=== PATIENT | male | born 1950 | race Two or more races ===

== ENCOUNTER 2021-06-04 19:33 | Inpatient (IN) | payer MEDICARE, OTHER ==
[~2021-06-04] VITALS: Ht 172.7 cm; Wt 74.4 kg
--- NOTE | 2021-06-04 19:51 | NUR ---
Patient brought in by ambulance from [facility] in [place]. Pt is alert, non redirectable, pulls of his gown and monitor. Pt alert and oriented x 1. Restless. No acute distress. Awaiting MD andrew.
[2021-06-04] MEDS ORDERED: LACT10PA5 PO (20:24)
[2021-06-04] MEDS ORDERED: ACET-2154 PO (20:24)
[2021-06-04 20:25] LABS: BILIRUBIN,DIRECT 1.6 mg/dL (0.0-0.2); BILIRUBIN,TOTAL 3.6 mg/dL (0.2-1.0); MAGNESIUM 1.7 mg/dL (1.8-2.4)
[2021-06-04 20:30] LABS: HEMATOCRIT 31.3 % (36.7-47.1); MEAN CORPUSCULAR HEMOGLOBIN 36.4 uug (23.8-33.4); MEAN CORPUSCULAR VOLUME 107.2 fL (73.0-96.2)
[2021-06-04 20:34] LABS: PLATELET COUNT (AUTO) 33 K/uL (152-348)
[2021-06-04] MEDS ORDERED: LACTULOSE 20 G/30 ML LIQUID UDC PO ONE (21:00)
[2021-06-04 21:01] LABS: EOSINOPHILS % (MANUAL) 2 % (0-8); LYMPHOCYTES % (MANUAL) 11 % (20-40); MONOCYTES % (MANUAL) 8 % (2-10); NEUTROPHILS % (MANUAL) 79 % (42-75)
--- NOTE | 2021-06-04 21:38 | NUR ---
20g IV placed to Lt hand.
[2021-06-04] MEDS ORDERED: LACTULOSE 20 G/30 ML LIQUID UDC ONE (21:39)
[2021-06-04] MEDS: MAGNESIUM SULFATE/D5W 100 ML IV SCH ×3 (21:40→22:40)
[2021-06-04] MEDS ORDERED: MAGNESIUM SULFATE/D5W 100 ML ONE ×3 (21:40→22:44)
--- NOTE | 2021-06-04 22:00 | NUR ---
Per Dr. Rahman to run magneskavya wide open
--- NOTE | 2021-06-04 22:10 | NUR ---
2nd back of magnesium 1mg started.
--- NOTE | 2021-06-04 22:40 | NUR ---
2nd bag magnesium ended, 3rd bag started.
--- NOTE | 2021-06-04 23:08 | NUR ---
Report given to Nurse Paredes
--- NOTE | 2021-06-04 23:10 | NUR ---
3rd bag of magnesium ended.
--- NOTE | 2021-06-04 23:15 | NUR ---
IV dc'd noted with tip intact.
--- NOTE | 2021-06-04 23:34 | NUR ---
Patient taken to MHU via gurney with Caron BEDOYA assisting. Further report given to nurse Reggie. No incident noted during transfer.
--- NOTE | 2021-06-04 23:35 | NUR ---
Patient admitted to MHU, oriented to the environment, explained rules and policy. Patient on a 5150 hold for GD. Patient is under the care of Dr. Desai. Advisement was given to the patient. During evaluation patient appears dishevel, disorganized, confused, poor judgement, poor insight, A&O x 1, unable to follow command, and unsteady gait. No sign or symptom of respiratory distress, breathing even, unlabored. No indication of pain or discomfort. Vital signs within normal levels. Skin assessment and lice check was done. No significant findings were found, skin intact. No lice found. Patient has no belongings. Will continue to monitor patient for safety.
[2021-06-04] MEDS ORDERED: BLOOD SUGAR DIAGNOSTIC 1 EACH STRIP VI ONE (23:45)
[2021-06-04] MEDS ORDERED: MAGNESIUM HYDROXIDE 30 ML LIQUID UDC PO PRN (23:45)
[2021-06-04] MEDS ORDERED: MAG HYDROX/AL HYDROX/SIMETH 30 ML LIQUID UDC PO PRN (23:45)
[2021-06-05 07:20] LABS: CREATININE 0.8 mg/dL (0.6-1.3); POTASSIUM 3.4 mmol/L (3.5-5.1)
[2021-06-05 07:30] VITALS: BP 135/71
--- NOTE | 2021-06-05 08:04 | NUR ---
FIREARMS REPORT: [employer] completed and submitted a DOJ firearms report for 5150 grave disability certification. A copy of report has been placed in patient chart.
[2021-06-05] MEDS ORDERED: ACETAMINOPHEN 325 MG TABLET PO PRN (09:15)
[2021-06-05] MEDS ORDERED: POTASSIUM CHLORIDE 20 MEQ TAB.PRT.SR PO ONE ×2 (09:15→17:00)
[2021-06-05] MEDS ORDERED: LACTULOSE 20 G/30 ML LIQUID UDC PO PRN (09:15)
[2021-06-05] MEDS ORDERED: Medication Not On Formulary EA (Lactulose 10 GM) PO PRN (09:15)
[2021-06-05] MEDS: LORAZEPAM 1 MG TABLET PO PRN ×3 (09:32→23:25)
--- NOTE | 2021-06-05 10:20 | NUR ---
CITLALLI Initial Discharge Plan: Patient lives at home with sister Tricia ([phone]) located at [address], [place] [address]; ([phone]). This SW contacted patient's sister Tricia ([phone]) who stated that she is unable to take care of pt and pt will need a SNF for the meantime. SW will work with the MD and family to coordinate proper discharge.
--- NOTE | 2021-06-05 10:20 | NUR ---
Social Work Note/Substance Abuse Intervention: Patient was provided with a brief substance abuse intervention and referred to [facility] ([phone]), [facility] ([phone]), and [facility] ([phone]).
--- NOTE | 2021-06-05 10:20 | NUR ---
SW Family Contact: This SW contacted patient's sister Tricia ([phone]) who stated that she is unable to take care of pt and pt will need a SNF for the meantime.
--- NOTE | 2021-06-05 13:56 | NUR ---
potassium not yet given. med fell off in pyxis waiting for reenter from pharmacy
[2021-06-05 16:00] VITALS: BP 125/63
[2021-06-05 20:00] VITALS: BP 136/57
[2021-06-05] MEDS: RIVASTIGMINE TARTRATE 1.5 MG CAPSULE PO SCH (20:32)
[2021-06-05] MEDS: risperiDONE 1 MG TABLET PO SCH (20:32)
[2021-06-05] MEDS ORDERED: risperiDONE 0.5 MG TABLET PO SCH (21:00)
[2021-06-06] MEDS: LORAZEPAM 1 MG TABLET PO PRN (06:41)
[2021-06-06 07:30] VITALS: BP 108/72
[2021-06-06] MEDS: RIVASTIGMINE TARTRATE 1.5 MG CAPSULE PO SCH ×2 (08:00→20:05)
[2021-06-06] MEDS: risperiDONE 1 MG TABLET PO SCH ×2 (08:00→20:05)
--- NOTE | 2021-06-06 09:42 | NUR ---
SW SNF Referral: CITLALLI faxed patient's referral packet for review to [facility] ( ).
[2021-06-06 16:00] VITALS: BP 128/61
--- NOTE | 2021-06-06 16:27 | NUR ---
Pt not NPO, spoke to Rn, Pt will be Npo tmrw
[2021-06-06] MEDS: TEMAZEPAM 7.5 MG CAPSULE PO PRN (20:06)
[2021-06-06 20:22] VITALS: BP 113/70
[2021-06-07] MEDS: LORAZEPAM 1 MG TABLET PO PRN ×2 (02:34→11:37)
--- NOTE | 2021-06-07 05:31 | NUR ---
Pharmacy note ; This patient received Ativan 1mg PO at 2130. This medication was scanned late at 02:34am. This curriculum writer thought it was scanned on time but when verifying the medications , curriculum writer discovered it was missed.
--- NOTE | 2021-06-07 05:41 | NUR ---
Received the patient in the Torrie chair last night. Mumbling and confused. This bid writer was however able to get simple answers. The patient verbalized being hungry and was give a sandwich and monitored closely for aspiration. Patient was assisted to the bathroom with 2 staff members. He was weak and his gait was unsteady. As the night wore on the patient became anxious and was banging on the table. PRN medications were provided and the patient was compliant. Total sleep hours were 5.00. Continuing to monitor this patient for safety, increasing confusion and behavior escalation. No acute distress at this time.
[2021-06-07 07:35] VITALS: BP 126/66
[2021-06-07] MEDS: risperiDONE 1 MG TABLET PO SCH ×2 (08:10→20:34)
[2021-06-07] MEDS: RIVASTIGMINE TARTRATE 1.5 MG CAPSULE PO SCH ×2 (08:11→20:34)
[2021-06-07] MEDS: ACETAMINOPHEN 325 MG TABLET PO PRN (11:38)
[2021-06-07 16:25] VITALS: BP 123/53
[2021-06-07 20:23] VITALS: BP 135/66
[2021-06-07] MEDS: TEMAZEPAM 7.5 MG CAPSULE PO PRN (20:36)
[2021-06-08] MEDS: LORAZEPAM 1 MG TABLET PO PRN ×2 (00:37→08:23)
[2021-06-08] MEDS: RIVASTIGMINE TARTRATE 1.5 MG CAPSULE PO SCH ×2 (08:23→23:09)
[2021-06-08] MEDS: risperiDONE 1 MG TABLET PO SCH ×2 (08:23→23:09)
[2021-06-08 09:31] LABS: BILIRUBIN,TOTAL 3.5 mg/dL (0.2-1.0); CREATININE 0.7 mg/dL (0.6-1.3); MAGNESIUM 2.1 mg/dL (1.8-2.4); POTASSIUM 3.9 mmol/L (3.5-5.1); TOTAL PROTEIN, SERUM 6.9 g/dL (6.4-8.2)
[2021-06-08 09:32] VITALS: BP 111/66
[2021-06-08 10:17] LABS: HEMATOCRIT 33.3 % (36.7-47.1); MEAN CORPUSCULAR HEMOGLOBIN 36.6 uug (23.8-33.4); MEAN CORPUSCULAR VOLUME 111.8 fL (73.0-96.2)
[2021-06-08 10:24] LABS: PLATELET COUNT (AUTO) 29 K/uL (152-348)
--- NOTE | 2021-06-08 10:35 | NUR ---
RECEIVED CALL FROM LAB REGARDING PT'S CRITICAL LAB RESULTS OF DECREASED PLATELET COUNT OF 29. INFORMED DR. SORIA WITH NO NEW ORDERS AT THIS TIME.
[2021-06-08 15:06] LABS: EOSINOPHILS % (MANUAL) 2 % (0-8); LYMPHOCYTES % (MANUAL) 20 % (20-40); MONOCYTES % (MANUAL) 10 % (2-10); NEUTROPHILS % (MANUAL) 68 % (42-75)
[2021-06-08 16:24] VITALS: BP 119/69
[2021-06-08 20:23] VITALS: BP 125/44
[2021-06-09] MEDS: RIVASTIGMINE TARTRATE 1.5 MG CAPSULE PO SCH ×2 (08:23→20:21)
[2021-06-09] MEDS: risperiDONE 1 MG TABLET PO SCH (08:23)
[2021-06-09] MEDS: ACETAMINOPHEN 325 MG TABLET PO PRN ×2 (08:31→17:02)
[2021-06-09] MEDS: LORAZEPAM 1 MG TABLET PO PRN ×3 (08:31→17:02)
[2021-06-09 09:43] VITALS: BP 112/56
--- NOTE | 2021-06-09 10:11 | NUR ---
Court Hearing: Patient's court hearing for 2010 was today and it was upheld for GD.
--- NOTE | 2021-06-09 15:06 | NUR ---
SW Family Contact: This SW contacted patients sister Tricia ([phone]) to notify that pt is accepted at [facility], however, she did not have a voicemail set up.
--- NOTE | 2021-06-09 15:06 | NUR ---
SNF Contact: This SW received a call from [employer] admin from [facility] who stated that pt is accepted.
--- NOTE | 2021-06-09 15:11 | NUR ---
SW Family Contact: This SW contacted patients sister Tricia ([phone]) and stated that pt is accepted at [facility] and she was agreeable with this.
--- NOTE | 2021-06-09 15:28 | NUR ---
SW Family Contact: This SW contacted patients sister Tricia ([phone]) and sister stated if this commercial loan underwriter can fax clinicals to [facility] ([phone]).
--- NOTE | 2021-06-09 15:29 | NUR ---
SNF Referral: This SW contacted [facility] and spoke with admissions Anny ([phone]) and faxed ([phone]) for placement option per sister request.
[2021-06-09 15:36] VITALS: BP 124/46
[2021-06-09 20:07] VITALS: BP 101/63
[2021-06-09] MEDS: HALOPERIDOL 2 MG TABLET PO SCH (20:21)
[2021-06-09] MEDS: TEMAZEPAM 7.5 MG CAPSULE PO PRN (21:33)
[2021-06-10 07:30] VITALS: BP 137/65
[2021-06-10] MEDS: HALOPERIDOL 2 MG TABLET PO SCH ×3 (08:28→16:28)
[2021-06-10] MEDS: RIVASTIGMINE TARTRATE 1.5 MG CAPSULE PO SCH ×2 (08:28→21:00)
--- NOTE | 2021-06-10 10:33 | NUR ---
SNF Contact: This SW contacted [facility] and spoke with surendra Anny ([phone]) who stated patient is accepted at the facility for placement.
--- NOTE | 2021-06-10 10:34 | NUR ---
SW Family Contact: This SW contacted patients sister Tricia ([phone]) and informed that patient is accepted at [facility] ([phone]).
[2021-06-10] MEDS: LORAZEPAM 1 MG TABLET PO PRN (12:24)
[2021-06-10 15:15] VITALS: BP 121/72
[2021-06-10 20:37] VITALS: BP 128/58
[2021-06-11] MEDS: LORAZEPAM 1 MG TABLET PO PRN (01:46)
--- NOTE | 2021-06-11 01:53 | NUR ---
GPS: Pt.is awake,restless and confused. Incontinence care was just rendered. Repositioned for comfort. Re-directed and reality re-orientation provided. Fall precautions observed. Ativan 1mg PO given. Will monitor effectiveness.
[2021-06-11 07:30] VITALS: BP 128/93
[2021-06-11] MEDS: HALOPERIDOL 2 MG TABLET PO SCH ×3 (09:27→18:01)
[2021-06-11] MEDS: RIVASTIGMINE TARTRATE 1.5 MG CAPSULE PO SCH ×2 (09:27→22:31)
--- NOTE | 2021-06-11 11:08 | NUR ---
CITLALLI Coordination of Care: CITLALLI spoke with digital content coordinator Anny ([phone]) and stated pt will be discharged on Sunday 06/17 and require clinicals to be faxed Wednesday.
[2021-06-11 16:41] VITALS: BP 138/70
[2021-06-11 20:08] VITALS: BP 122/56
[2021-06-12 07:30] VITALS: BP 140/71
[2021-06-12] MEDS: HALOPERIDOL 2 MG TABLET PO SCH ×3 (08:48→17:01)
[2021-06-12] MEDS: RIVASTIGMINE TARTRATE 1.5 MG CAPSULE PO SCH ×2 (08:48→20:47)
--- NOTE | 2021-06-12 14:24 | NUR ---
Gps/Site Leader- Appeared to be lrthargic, responding to simple command, max assist with P.T. transfers. Kept up in his mahesh-chair, asleep most of the time, arousable . safety emphasized. Unable to collect urine specimen at this time r/t incontinence
[2021-06-12 16:00] VITALS: BP 134/71
[2021-06-12] MEDS: LACTULOSE 20 G/30 ML LIQUID UDC PO SCH (17:01)
[2021-06-12 20:00] VITALS: BP 129/55
[2021-06-13] MEDS: LORAZEPAM 1 MG TABLET PO PRN (02:48)
--- NOTE | 2021-06-13 06:41 | NUR ---
GPS: Pt.slept for 8 last night. Up on mahesh-chair in front of nurses station for safety. Remains confused,disoriented. Re-directed prn. Will continue to monitor.
[2021-06-13 07:30] VITALS: BP 135/70
--- NOTE | 2021-06-13 08:27 | NUR ---
Gps/Mason Tender- Received up in his mahesh-chair, asleep , arousable, moans at times, mumbles, in no signs of any distress Patient tends to lean on his right side. assisted with proper positioning
[2021-06-13] MEDS: RIVASTIGMINE TARTRATE 1.5 MG CAPSULE PO SCH ×2 (09:22→20:23)
[2021-06-13] MEDS: HALOPERIDOL 2 MG TABLET PO SCH ×3 (09:22→16:56)
[2021-06-13] MEDS: LACTULOSE 20 G/30 ML LIQUID UDC PO SCH ×2 (09:22→16:55)
--- NOTE | 2021-06-13 15:45 | NUR ---
SW Family Contact: This SW contacted patients sister Tricia ([phone]) and stated pt will be discharged next week Wednesday. She is agreeable with this.
[2021-06-13 16:53] VITALS: BP_SYST 56
[2021-06-13 20:25] VITALS: BP 148/75
[2021-06-13] MEDS: TEMAZEPAM 7.5 MG CAPSULE PO PRN (20:56)
[2021-06-13] MEDS: Z GUARD REMEDY PASTE 57 GM TUBE TOP PRN (20:56)
--- NOTE | 2021-06-14 06:32 | NUR ---
GPS: Pt.slept 6 hrs last night. Remains confused,disoriented and disorganized. Incontinence care done frequently. Denied pain when asked. Able to reposition self prn. Will continue to monitor.
[2021-06-14 07:30] VITALS: BP 153/78
[2021-06-14] MEDS: RIVASTIGMINE TARTRATE 1.5 MG CAPSULE PO SCH ×2 (08:49→21:19)
[2021-06-14] MEDS: LACTULOSE 20 G/30 ML LIQUID UDC PO SCH ×2 (08:49→16:48)
[2021-06-14] MEDS: HALOPERIDOL 2 MG TABLET PO SCH ×3 (08:49→16:48)
--- NOTE | 2021-06-14 12:54 | NUR ---
Patient in bed, moans whenever I call his name. Turning and repositioning rendered. Kept skin clean and dry. All due meds given per MD order. All needs met in a timely manner.
[2021-06-14] MEDS: LORAZEPAM 1 MG TABLET PO PRN ×2 (13:08→19:57)
[2021-06-14 15:03] VITALS: BP 147/81
[2021-06-14 20:22] VITALS: BP 148/78
[2021-06-14] MEDS: Z GUARD REMEDY PASTE 57 GM TUBE TOP PRN (21:19)
--- NOTE | 2021-06-15 06:28 | NUR ---
Received Pi asleep in bed, arouses to touch. Pt is A+O x0, and barely responsive to his name due to severe cognitive decline. Pt is uncooperative and resistant to care. Pt requires maximum assist with all ADLs. Skin and oral care provided. Pt had 2 large BMs throughout the shift, Pt cleaned and changed, Z guard applied to groin and buttock area. Repositioned q 2 hours, bony prominences padded. Pt requires a minimum of 2 staff to perform ADLs due to aggression when care is rendered. Medication administered crushed in applesauce. VS stable, no evidence of pain.
[2021-06-15] MEDS: LACTULOSE 20 G/30 ML LIQUID UDC PO SCH ×2 (08:27→17:00)
[2021-06-15] MEDS: RIVASTIGMINE TARTRATE 1.5 MG CAPSULE PO SCH ×2 (08:27→20:45)
[2021-06-15] MEDS: HALOPERIDOL 2 MG TABLET PO SCH ×3 (08:27→17:05)
[2021-06-15 09:14] VITALS: BP 149/50
[2021-06-15 16:39] VITALS: BP 163/80
--- NOTE | 2021-06-15 18:14 | NUR ---
REMINDED DAVID Ashraf NP ABOUT PT'S CRITICAL PLATELET LEVEL OF 29 WITH NO NEW ORDERS GIVEN.
--- NOTE | 2021-06-15 18:25 | NUR ---
patient asleep most of shift arouse when touch , still had 2 large BM, keep skin dry and clean at all time, total care to all ADLS.
[2021-06-15 20:05] VITALS: BP 136/77
[2021-06-15] MEDS: TEMAZEPAM 7.5 MG CAPSULE PO PRN (23:28)
[2021-06-16 07:50] VITALS: BP 165/74
[2021-06-16] MEDS: RIVASTIGMINE TARTRATE 1.5 MG CAPSULE PO SCH ×2 (08:30→20:15)
[2021-06-16] MEDS: LACTULOSE 20 G/30 ML LIQUID UDC PO SCH ×2 (08:30→16:50)
[2021-06-16] MEDS: HALOPERIDOL 2 MG TABLET PO SCH ×3 (08:30→16:50)
[2021-06-16 09:26] LABS: THYROID STIMULATING HORMONE 1.883 mIU/mL (0.358-3.740)
[2021-06-16 09:41] LABS: BILIRUBIN,DIRECT 1.2 mg/dL (0.0-0.2); BILIRUBIN,TOTAL 4.5 mg/dL (0.2-1.0); CREATININE 0.7 mg/dL (0.6-1.3); POTASSIUM 3.9 mmol/L (3.5-5.1); TOTAL PROTEIN, SERUM 6.6 g/dL (6.4-8.2)
[2021-06-16 10:02] LABS: *RHEUMATOID FACTOR SCREEN POSITIVE (NEGATIVE)
[2021-06-16] MEDS ORDERED: FOLIC ACID 1 MG TABLET PO SCH (10:45)
[2021-06-16] MEDS ORDERED: IV D5W 1000ML 1,000 ML IV ONE (12:00)
[2021-06-16 12:15] LABS: HEMATOCRIT 35.4 % (36.7-47.1); MEAN CORPUSCULAR HEMOGLOBIN 38.1 uug (23.8-33.4); MEAN CORPUSCULAR VOLUME 115.7 fL (73.0-96.2)
[2021-06-16 12:34] LABS: PLATELET COUNT (AUTO) 19 K/uL (152-348)
--- NOTE | 2021-06-16 12:49 | NUR ---
Received critical lab from Ricky Ochoa [employer] made aware, spoke with Patient's sister Tricia Hayward if family wants to do full treatment and transfusion., due to his code status is DNR. patient' s family refused to be transfer to med/surg floor.
--- NOTE | 2021-06-16 16:10 | NUR ---
Transfer Note: Patient will be transferred to medical floor for blood transfusion. Dr. Tan will continue the hold. Patient is DNR. Patient is accepted at [facility], [address] [address] ([phone]). Patients sister Tricia ([phone]) is involved in patients care. CITLALLI spoke with continuous improvement coordinator Anny ([phone]) who confirmed patient is accepted. Or, speak to [facility] who is covering for Anny until 06/18 and will be back 06/19.
[2021-06-16 16:51] VITALS: BP 133/64
--- NOTE | 2021-06-16 18:14 | NUR ---
patient will be transfer to med/surg floor with DX; Thrombocytopenia, family notified spoke wth sister .
[2021-06-16 19:00] LABS: LYMPHOCYTES % (MANUAL) 25 % (20-40); MONOCYTES % (MANUAL) 10 % (2-10); NEUTROPHILS % (MANUAL) 60 % (42-75)
[2021-06-16 19:01] LABS: EOSINOPHILS % (MANUAL) 5 % (0-8)
[2021-06-16 20:29] VITALS: BP 162/68
[2021-06-16] MEDS ORDERED: HALOPERIDOL 1 MG TABLET PO SCH (21:00)
--- NOTE | 2021-06-16 23:08 | NUR ---
DISCHARGE NOTE: STAFF GAVE THE REPORT TO THE FLOOR NURSE. PT WAS TRANSFERRED TO MEDICAL FLOOR VIA RUBEN-CHAIR ACCOMPANIED BY 1:1 SITTER AND TOBACCO BUYERCERTIFIED SKI PATROLLER.STAFF GAVE THE REPORT TO THE FLOOR NURSE .A/O X1 ,ANXIOUS,RESTLESS AND INC.WITH BANDAR-ANAL CARE PROVIDED.
[2021-06-17 10:06] LABS: *IMMUNOGLOBULIN G, SERUM 2119 mg/dL (603-1613); IMMUNOGLOBULIN A, SERUM 1030 mg/dL (61-437); IMMUNOGLOBULIN M, SERUM 120 mg/dL (20-172)
[2021-06-18 06:06] LABS: A/G RATIO 0.7 (0.7-1.7); ALBUMIN 2.7 g/dL (2.9-4.4); ALPHA-1-GLOBULIN 0.1 g/dL (0.0-0.4); ALPHA-2-GLOBULIN 0.3 g/dL (0.4-1.0); BETA GLOBULIN 1.1 g/dL (0.7-1.3); GAMMA GLOBULIN 2.3 g/dL (0.4-1.8); GLOBULIN, TOTAL 3.8 g/dL (2.2-3.9); M-SPIKE Not Observed g/dL (Not Observed)
[2021-06-18 14:54] LABS: *ANTI-SCLERODERMA-70 AB <0.2; *SJOGREN'S ANTI-SS-A <0.2; *SMITH ANTIBODIES <0.2
[2021-06-18 14:55] LABS: *SJOGREN'S ANTI-SS-B 0.4; ANTI-DNA(DS) AB, QN <1
== END 2021-06-16 22:09 | disposition short-term general hospital (02) | DRG 885 ==
LOC: ER 19:36 → GPS 23:16
PROVIDERS: ADMIT Psychiatry & Neurology Psychiatry; ATTEND Family Medicine
DX: F39 Unspecified mood [affective] disorder (principal); B19.20 Unspecified viral hepatitis C without hepatic coma; D61.818 Other pancytopenia; E44.0 Moderate protein-calorie malnutrition; F23 Brief psychotic disorder; F10.20 Alcohol dependence, uncomplicated; F03.90 Unspecified dementia, unspecified severity, without behavioral disturbance, psychotic disturbance, mood disturbance, and anxiety; K72.10 Chronic hepatic failure without coma; K80.20 Calculus of gallbladder without cholecystitis without obstruction; E88.09 Other disorders of plasma-protein metabolism, not elsewhere classified; D69.59 Other secondary thrombocytopenia; E83.42 Hypomagnesemia; E87.6 Hypokalemia; I10 Essential (primary) hypertension; D53.9 Nutritional anemia, unspecified; Z73.6 Limitation of activities due to disability; F29 Unspecified psychosis not due to a substance or known physiological condition; F25.9 Schizoaffective disorder, unspecified; E80.6 Other disorders of bilirubin metabolism; Y90.9 Presence of alcohol in blood, level not specified; K80.80 Other cholelithiasis without obstruction; Z68.24 Body mass index [BMI] 24.0-24.9, adult; Z87.891 Personal history of nicotine dependence; K70.30 Alcoholic cirrhosis of liver without ascites
CPT/HCPCS: 36415; 70030-TC; 76705; 82747; 82784; 83550; 83735; 84155; 84165; 84443; 85014; 85025; 85610; 85730; 86038; 86334; 86430; 97161; A4663; J3475; J7070

== ENCOUNTER 2021-06-16 23:36 | Inpatient (IN) | payer MEDICARE, OTHER ==
[~2021-06-16] VITALS: Ht 172.7 cm; Wt 74.8 kg
[2021-06-16 23:20] VITALS: BP 138/74
[~2021-06-16 23:36] MED LIST: ACET-2154 PO; LACT10PA5 PO
[2021-06-17] MEDS ORDERED: MAGNESIUM HYDROXIDE 30 ML LIQUID UDC PO PRN
[2021-06-17] MEDS ORDERED: Z GUARD REMEDY PASTE 57 GM TUBE TOP PRN
[2021-06-17] MEDS ORDERED: ONDANSETRON 4 MG/2 ML VIAL IV PRN
[2021-06-17] MEDS ORDERED: ACETAMINOPHEN 325 MG TABLET PO PRN ×2
[2021-06-17] MEDS ORDERED: IV DEXTROSE 5% 500 ML IV PRN (00:15)
[2021-06-17] MEDS ORDERED: LACTULOSE 20 G/30 ML LIQUID UDC PO PRN (00:30)
--- NOTE | 2021-06-17 01:33 | NUR ---
Admitted pt from MHU at 2320 in a stable condition, no s/sx of distress. No complaints of pain or discomfort. VS WNL. Lore Muñoz RETREAD OPERATOR made aware of admission. Pt observed to be confused, aggressive, combative, refused to be touched/repositioned, hitting staff when he was being assisted. Refusing nursing care at this time. Safety precautions in place; 1:1 sitter at bedside. Pt asleep. Will endorse accordingly.
[2021-06-17 04:00] VITALS: BP 143/72
[2021-06-17 06:42] LABS: HEMATOCRIT 40.4 % (36.7-47.1); MEAN CORPUSCULAR HEMOGLOBIN 37.8 uug (23.8-33.4); MEAN CORPUSCULAR VOLUME 113.9 fL (73.0-96.2)
[2021-06-17 06:55] LABS: BILIRUBIN,DIRECT 1.4 mg/dL (0.0-0.2); BILIRUBIN,TOTAL 4.9 mg/dL (0.2-1.0); CREATININE 0.9 mg/dL (0.6-1.3); MAGNESIUM 2.6 mg/dL (1.8-2.4); PHOSPHOROUS 3.5 mg/dL (2.5-4.9); POTASSIUM 3.8 mmol/L (3.5-5.1); TOTAL PROTEIN, SERUM 7.7 g/dL (6.4-8.2)
[2021-06-17 06:56] LABS: PLATELET COUNT (AUTO) 21 K/uL (152-348)
--- NOTE | 2021-06-17 07:02 | NUR ---
Blaise from lab called in critical results for this pt at 0658: Platelets--21 Na--162 Chl--129 Will endorse accordingly
--- NOTE | 2021-06-17 07:42 | NUR ---
Dr. John made aware of critical labs. Awaiting orders, endorsed to day shift. Attempted to get an IV access twice but pt was being combative and aggressive, refusing to be touched, attempting to strike staff. Endorsed.
[2021-06-17 08:00] VITALS: BP 142/81
--- NOTE | 2021-06-17 08:17 | NUR ---
Transfer Note: Patient will be transferred to medical floor for blood transfusion. Dr. Tan will continue the hold. Patient is DNR. Patient is accepted at [facility], [address] [address] ([phone]). Patients sister Tricia ([phone]) is involved in patients care. CITLALLI spoke with waste reduction coordinator Anny ([phone]) who confirmed patient is accepted. Or, speak to [facility] who is covering for Anny until 06/18 and will be back 06/19.
[2021-06-17] MEDS ORDERED: PANTOPRAZOLE SODIUM 40 MG VIAL IV SCH (09:00)
--- NOTE | 2021-06-17 09:50 | NUR ---
RECEIVED PATIENT WITH NO IV SITE INSERTED GAUGE 20 TO HIS RIGHT FOREARM WRAPPED WITH KIRLIX AND STARTED HIS IVF ORDERED.
--- NOTE | 2021-06-17 12:27 | NUR ---
PATIENT REMAINS AWAKE ALERT TO SELF CONFUSED AND DISORIENTED HAS A ONE ON ONE SITTER FOR SAFETY UNABLE TO VERBALISE NEEDS ALL NEEDS ANTICIPATED AND SATISFIED MAX ASSIST FOR ALL ADL REMAIN SEATED ON THE CHAIR AT THIS TIME REFUSING TO GET BACK INTO THE BED AT THIS TIME WILL CONTINUE TO OBSERVE.
--- NOTE | 2021-06-17 13:26 | NUR ---
NEW ORDER NOTED FROM DR TAYLOR FOR CT ABDOMEN AND PELVIS WITH IV CONTRAST PATIENT IS CONFUSED AND DISORIENTED AND UNABLE TO CONSCENT CALLED PATIENTS SISTER JUVENAL AND SHE CONSCENTED AND WITHNESSED AWAITING FOR THE RADIOLOGY TO PICK HIM UP.
[2021-06-17] MEDS ORDERED: IV NORMAL SALINE 250 ML IV ONE (13:52)
[2021-06-17] MEDS ORDERED: IOHEXOL 300MG/ML 100 ML INFUS..BTL ONE (13:52)
[2021-06-17] MEDS ORDERED: SWABABLE VALVE TRANSFER SET EA MC ONE (13:52)
--- NOTE | 2021-06-17 14:41 | NUR ---
PATIENT TAKEN BY BED TO THE CT ORDERED AND BACK INTO HIS ROOM REMAIN CONFUSED AND DISORIENTED AND AT RISKS FOR FALLS HAS A SITTER AT HIS BEDSIDE WILL CONTINUE TO OBSERVE.
[2021-06-17 16:00] VITALS: BP 133/79
--- NOTE | 2021-06-17 16:45 | NUR ---
ORDER FOR DEXTROSE [address] GIBBONS IV WILL CONTINUE AND NOTED.
--- NOTE | 2021-06-17 17:00 | NUR ---
PATIENT SEEN AND EXAMINED BY GABRIEL YEPEZ SHEET METAL INSTALLER WITH NEW ORDERS FOR MRI ABDOMEN WITH CONTRAST PATIENT IS RESTLESS AND UNKNOWN IF HE IS ABLE TO TOLERATE MRI CALLED AND NOTIFIED DR GIBBONS STATED WILL TALK WITH DR AGOSTO AND WILL DECIDE IF PATIENT CAN HAVE THE MRI AWAITING FOR ORDERS.
[2021-06-17] MEDS: IV D5W 1000ML 1,000 ML IV PRN (17:21)
--- NOTE | 2021-06-17 18:00 | NUR ---
DR TAYLOR HERE TO SEE PATIENT WITH NO NEW ORDERS AT THIS TIME.
[2021-06-17 20:52] VITALS: BP 162/62
--- NOTE | 2021-06-17 21:03 | NUR ---
Received patient seated on the chair.Awake alert x1, confused and disoriented.On RA.No s/s of distress noted.Iv on right FA 20 patent and intact with IVF running well at 75 cc/hr.PAtient has 1:1 sitter for safety. No episodes of combative or agitation at this time.F/u with about his MRI in A.m .Per Dr. John to d/c he will not stay still .Pt's sister made aware.Will continue to monitor.
[2021-06-17] MEDS: LACTULOSE 20 G/30 ML LIQUID UDC PO SCH (21:25)
[2021-06-17] MEDS ORDERED: CLONIDINE-TTS 1 PATCH TD SCH (22:00)
[2021-06-17] MEDS ORDERED: CLONIDINE-TTS 1 PATCH TD ONE (22:45)
[2021-06-18 04:00] VITALS: BP 124/64
[2021-06-18 06:08] LABS: HEMATOCRIT 34.8 % (36.7-47.1); MEAN CORPUSCULAR HEMOGLOBIN 37.7 uug (23.8-33.4); MEAN CORPUSCULAR VOLUME 114.1 fL (73.0-96.2)
[2021-06-18 06:18] LABS: PLATELET COUNT (AUTO) 19 K/uL (152-348)
[2021-06-18 06:27] LABS: BILIRUBIN,DIRECT 1.1 mg/dL (0.0-0.2); BILIRUBIN,TOTAL 3.9 mg/dL (0.2-1.0); CREATININE 0.9 mg/dL (0.6-1.3); MAGNESIUM 2.2 mg/dL (1.8-2.4); POTASSIUM 3.7 mmol/L (3.5-5.1); TOTAL PROTEIN, SERUM 6.5 g/dL (6.4-8.2)
[2021-06-18] MEDS: IV D5W 1000ML 1,000 ML IV PRN ×2 (07:10→20:46)
[2021-06-18 07:30] VITALS: BP 111/80
[2021-06-18] MEDS: LACTULOSE 20 G/30 ML LIQUID UDC PO SCH ×2 (08:06→20:35)
[2021-06-18] MEDS ORDERED: PHYTONADIONE 10 MG/1 ML AMPUL SQ ONE (09:30)
[2021-06-18 15:43] VITALS: BP 137/77
[2021-06-18] MEDS: MUPIROCIN 2% OINT 22 GM TUBE NS SCH (20:35)
--- NOTE | 2021-06-18 21:26 | NUR ---
one unit of platelets given per md orders no a/r noted
[2021-06-19 06:19] LABS: HEMATOCRIT 29.4 % (36.7-47.1); MEAN CORPUSCULAR HEMOGLOBIN 38.2 uug (23.8-33.4); MEAN CORPUSCULAR VOLUME 112.3 fL (73.0-96.2)
[2021-06-19 06:30] LABS: PLATELET COUNT (AUTO) 22 K/uL (152-348)
[2021-06-19 06:33] LABS: BILIRUBIN,TOTAL 3.1 mg/dL (0.2-1.0); CREATININE 0.7 mg/dL (0.6-1.3); PHOSPHOROUS 3.1 mg/dL (2.5-4.9); POTASSIUM 3.3 mmol/L (3.5-5.1); TOTAL PROTEIN, SERUM 5.5 g/dL (6.4-8.2)
--- NOTE | 2021-06-19 07:20 | NUR ---
Received patient sleeping. No distress noted. A sitter is next to him. Safety precaution will be maintained. Will continue to ,monitor and frequent check will be done.
[2021-06-19 08:00] VITALS: BP 108/49
[2021-06-19] MEDS: LACTULOSE 20 G/30 ML LIQUID UDC PO SCH ×2 (08:55→20:11)
[2021-06-19] MEDS: MUPIROCIN 2% OINT 22 GM TUBE NS SCH ×2 (08:55→20:12)
[2021-06-19] MEDS: IV D5W 1000ML 1,000 ML IV PRN (10:03)
[2021-06-19] MEDS ORDERED: POTASSIUM CHLORIDE 20 MEQ TAB.PRT.SR PO ONE (11:00)
[2021-06-19 13:40] VITALS: BP 99/55
[2021-06-19] MEDS ORDERED: ACETAMINOPHEN 325 MG TABLET PO ONE (14:30)
[2021-06-19] MEDS ORDERED: diphenhydrAMINE 50 MG/1 ML VIAL IV ONE (14:30)
[2021-06-19 16:00] VITALS: BP 111/72
--- NOTE | 2021-06-19 19:00 | NUR ---
made rounds. Dr Odom ordered patient for cryoprecipate transfusion and bone marrow biopsy and aspiration once. Per lab, cryoprecipate is not available and [facility] will not release it unless its medical. Informed Dr Odom and stated to inform the family about the feedback from the blood bank. Sister (Tricia), stated its okay if it will not be done. Tricia also, refused biopsy. She stated the patient has been through a lot and does not want to do anything at this time and wanted the patient to be discharged tomorrow. Dr Odom and CM informed about the plan. Will endorsed to the next shift for continuity of care. No distress identified during the shift. No pain identified. COVID rapid test was done per order,awaiting result.
[2021-06-20] MEDS: IV D5W 1000ML 1,000 ML IV PRN (02:25)
[2021-06-20 04:00] VITALS: BP 100/50
[2021-06-20 06:33] LABS: CREATININE 0.7 mg/dL (0.6-1.3); MAGNESIUM 1.9 mg/dL (1.8-2.4); PHOSPHOROUS 2.8 mg/dL (2.5-4.9); POTASSIUM 3.7 mmol/L (3.5-5.1)
[2021-06-20 06:44] LABS: MEAN CORPUSCULAR HEMOGLOBIN 38.5 uug (23.8-33.4); MEAN CORPUSCULAR VOLUME 111.8 fL (73.0-96.2)
[2021-06-20 06:48] LABS: PLATELET COUNT (AUTO) 25 K/uL (152-348)
[2021-06-20] MEDS ORDERED: LIDOCAINE HCL 1% 20 ML VIAL IJ PRN (08:00)
[2021-06-20] MEDS ORDERED: ENSURE ENLIVE (VAN) 240 ML LIQUID PO SCH (09:00)
[2021-06-20] MEDS: LACTULOSE 20 G/30 ML LIQUID UDC PO SCH (09:42)
[2021-06-20] MEDS: MUPIROCIN 2% OINT 22 GM TUBE NS SCH (09:43)
[2021-06-20] MEDS ORDERED: MENT71OI TOP (11:41)
[2021-06-20] MEDS ORDERED: LACT10SO7 PO (11:41)
[2021-06-20] MEDS ORDERED: Lactose-Free Food PO (11:41)
[2021-06-20] MEDS ORDERED: RIFA550T PO (11:41)
--- NOTE | 2021-06-20 11:56 | NUR ---
Patient has not been on restraints since 06/19/21 1700pm. No aggressive/ disruptive behavior noted. No signs of acute distress.
[2021-06-20] MEDS ORDERED: RIFAXIMIN 550 MG TABLET PO SCH (12:00)
[2021-06-20 13:59] LABS: EOSINOPHILS % (MANUAL) 3 % (0-8); LYMPHOCYTES % (MANUAL) 25 % (20-40); MONOCYTES % (MANUAL) 12 % (2-10); NEUTROPHILS % (MANUAL) 60 % (42-75)
--- NOTE | 2021-06-20 16:05 | NUR ---
Patient discharged to [facility] SNF. Patient AOx1. On room air. Vital signs WNL.No signs of acute distress. Patient denies pain/ discomfort. No disruptive/ aggressive behavior noted. Discharge paperwork sent with ambulance crew. ID armband removed. IV access removed. Patient left unit via ambulance gurney. Nursing report given to TREY Singh of [facility].
== END 2021-06-20 16:00 | DRG 432 ==
LOC: MEDSURG3 23:36
PROVIDERS: ADMIT Internal Medicine; ATTEND Internal Medicine
PROC: 30233R1 Transfusion of Nonautologous Platelets into Peripheral Vein, Percutaneous Approach (ICD-10-PCS; principal; 2021-06-18)
DX: K70.30 Alcoholic cirrhosis of liver without ascites (principal); E43 Unspecified severe protein-calorie malnutrition; G92 Toxic encephalopathy; D61.818 Other pancytopenia; E87.0 Hyperosmolality and hypernatremia; D68.9 Coagulation defect, unspecified; D69.59 Other secondary thrombocytopenia; R16.1 Splenomegaly, not elsewhere classified; F39 Unspecified mood [affective] disorder; K80.20 Calculus of gallbladder without cholecystitis without obstruction; Z87.891 Personal history of nicotine dependence; K40.20 Bilateral inguinal hernia, without obstruction or gangrene, not specified as recurrent; K57.30 Diverticulosis of large intestine without perforation or abscess without bleeding; I70.8 Atherosclerosis of other arteries; D53.9 Nutritional anemia, unspecified; D73.89 Other diseases of spleen; D75.89 Other specified diseases of blood and blood-forming organs; F03.90 Unspecified dementia, unspecified severity, without behavioral disturbance, psychotic disturbance, mood disturbance, and anxiety; Z86.19 Personal history of other infectious and parasitic diseases; K70.40 Alcoholic hepatic failure without coma; Z20.822 Contact with and (suspected) exposure to COVID-19; F10.10 Alcohol abuse, uncomplicated
CPT/HCPCS: 36415; 70030-TC; 70450; 71045; 83735; 84100; 84153; 85025; 85610; 85730; 86850; 86900; 86901; C9113; G0378; J1200; J3430; J3490; J7040; J7050; J7060; J7070; P9021; P9035; Q9967